=== PATIENT | male | born 1985 | race Caucasian/White ===

== ENCOUNTER 2018-06-06 13:55 | Emergency (ER) | payer OTHER ==
[~2018-06-06] VITALS: Ht 167.6 cm; Wt 74.8 kg
--- NOTE | 2018-06-06 14:00 | NUR ---
Note adeola in ED - 06/06/18 at 1627 by ESTHER michelle richardson c/o low bp from home for hypotension, NAD noted, VSS, resp even and unlabored. pt was put on monitor, waiting for md ellison.
--- NOTE | 2018-06-06 14:06 | NUR ---
BIB [facility], PT WAS FOUND IN [place], STATES "I DRANK TOO MUCH". NAD NOTED, VSS, RESP EVEN AND UNLABORED, PT WAS PUT ON MONITOR, WAITING FOR MD ARDON.
--- NOTE | 2018-06-06 14:06 | NUR ---
urine sent to lab
[2018-06-06] MEDS ORDERED: LORAZEPAM INJ 2 MG/ML VIAL ONE (14:28)
--- NOTE | 2018-06-06 14:30 | NUR ---
EYAL PANTOJA PATIENTS SISTER CALLED TO LEAVE CONTACT INFO
[2018-06-06] MEDS: LORAZEPAM INJ 2 MG/ML VIAL IM ONE (14:36)
[2018-06-06 14:53] LABS: APPEARANCE,URINE Clear (CLEAR); BILIRUBIN,URINE Negative (NEGATIVE); BLOOD, URINE Trace-intact Ery/uL (NEGATIVE); COLOR,URINE Yellow (YELLOW); KETONES,URINE Negative (NEGATIVE); LEUKOCYTE ESTERASE ,URINE Negative (NEGATIVE); NITRITE, URINE Negative (NEGATIVE); PROTEIN,URINE Negative (NEGATIVE); UGLUCOSE Negative (NEGATIVE); UROBILINOGEN,URINE 0.2 EU/dL (0.2)
[2018-06-06 14:54] LABS: BACTERIA,URINE Rare /HPF (None Seen); RBC,URINE NONE SEEN /HPF (0-2); SQUAMOUS EPITHELIAL CELL,UR Rare /HPF (None Seen); WBC,URINE 0-2 /HPF (0-3)
[2018-06-06 14:56] LABS: BASOPHILS % (AUTO) 0.3 % (0.0-2.0); EOSINOPHILS % (AUTO) 0.6 % (0.0-6.0); HEMATOCRIT 44 % (39-51); HEMOGLOBIN 15.4 g/dL (13.5-17.5); LYMPHOCYTES # (AUTO) 1.5 /CMM (0.8-4.8); LYMPHOCYTES % (AUTO) 20.4 % (20.0-44.0); MEAN CORPUSCULAR HEMOGLOBIN 32 PG (26.0-33.0); MEAN CORPUSCULAR HGB CONC 35 g/dl (31.0-36.0); MEAN CORPUSCULAR VOLUME 92 fL (80-96); MONOCYTES # (AUTO) 0.4 /CMM (0.1-1.30); MONOCYTES % (AUTO) 5.2 % (2.0-12.0); NEUTROPHILS # (AUTO) 5.3 /CMM (1.8-8.9); NEUTROPHILS % (AUTO) 73.5 % (43.0-81.0); PLATELET COUNT (AUTO) 278 /CMM (150-450); RDW COEFFICIENT OF VARIATION 13.3 (11.5-15.0); RED BLOOD CELL COUNT(AUTO) 4.84 MIL/uL (4.5-6.0); WHITE BLOOD COUNT (AUTO) 7.2 K/uL (4.3-11.0)
[2018-06-06 14:58] LABS: CALCIUM, SERUM 9.1 mg/dL (8.5-10.1); CARBON DIOXIDE 29 mmol/L (21-32); CHLORIDE 103 mmol/L (98-107); GLUCOSE 113 mg/dL (74-106); POTASSIUM 3.9 mmol/L (3.5-5.1); SODIUM SERUM 143 mmol/L (136-145); UREA NITROGEN, BLOOD 4 mg/dL (7-18)
[2018-06-06 15:03] LABS: INR 1.04 (0.85-1.15)
[2018-06-06 15:06] LABS: ACETAMINOPHEN < 2 ug/ml (10-30); ALANINE AMINOTRANSFERASE 43 U/L (12-78); ALBUMIN 4.2 g/dL (3.4-5.0); ALCOHOL, BLOOD 321 mg/dL (0-0); ALKALINE PHOSPHATASE 138 U/L (46-116); ASPARTATE AMINOTRANSFERASE 42 U/L (15-37); BILIRUBIN,DIRECT 0.2 mg/dL (0.0-0.2); SALICYLATE 0.4 mg/dL (2.8-20.0); TOTAL PROTEIN, SERUM 7.3 g/dL (6.4-8.2)
[2018-06-06] MEDS ORDERED: diphenhydrAMINE HCL 50 MG/ML VIAL ONE (15:58)
[2018-06-06] MEDS ORDERED: HALOPERIDOL LACTATE INJ 5 MG/ML VIAL ONE (15:58)
[2018-06-06] MEDS: diphenhydrAMINE HCL 50 MG/ML VIAL IM ONE (16:01)
[2018-06-06] MEDS: HALOPERIDOL LACTATE INJ 5 MG/ML VIAL IM ONE (16:01)
--- NOTE | 2018-06-06 16:22 | NUR ---
SPOKE WITH FAMILY AT BEDSIDE, REASSURING THEM THAT WE WILL KEEP HIM SAFE AND IT WILL TAKE AT LEAST AN ESTIMATE OF ABOUT 10-12 HRS BEFORE THE ALCOHOL LEVEL WILL GO DOWN TO A LEGAL LEVEL FOR PSYCH EVAL.
--- NOTE | 2018-06-06 16:30 | NUR ---
Patient is resting comfortably in bed with eyes closed. Easily aroused. VSS
--- NOTE | 2018-06-06 17:30 | NUR ---
restraints removed, family at bs.
--- NOTE | 2018-06-06 18:45 | NUR ---
aljeandro de oliveira at bs.
--- NOTE | 2018-06-06 19:31 | NUR ---
Patient discharged to home in stable condition. Written and verbal after care instructions given. Patient verbalizes understanding of instruction.IV removed. Catheter intact and site benign. Pressure and 4x4 applied to site. No bleeding noted.
[2018-06-06 19:33] VITALS: BP 129/62
== END 2018-06-06 19:34 | disposition home or self-care (01) ==
LOC: ER 13:59
DX: F10.129 Alcohol abuse with intoxication, unspecified (principal); R79.89 Other specified abnormal findings of blood chemistry; R41.82 Altered mental status, unspecified; Y90.8 Blood alcohol level of 240 mg/100 ml or more
CPT/HCPCS: 36415; 70450-TC; 71045-TC; 72125-TC; 80048-TC; 80076-TC; 80305; 81000-TC; 85025-TC; 85730-TC; A4606; G0480; J1200; J1630; J2060; Z7610